=== PATIENT | male | born 1975 | race Caucasian/White ===

== ENCOUNTER 2025-06-24 15:05 | Outpatient (CLI) | payer BC | END 2025-06-24 15:06 | disposition home or self-care (01) | LOC: CSHRAD 15:05 | DX: M79.621 Pain in right upper arm (principal); M89.9 Disorder of bone, unspecified ==

== ENCOUNTER 2025-08-31 15:31 | Outpatient (CLI) | payer BC | END 2025-08-31 15:32 | disposition home or self-care (01) | LOC: CSHMRI 15:31 | PROVIDERS: ATTEND Orthopaedic Surgery | DX: S46.211A Strain of muscle, fascia and tendon of other parts of biceps, right arm, initial encounter (principal) ==